=== PATIENT | male | born 1985 | race Caucasian/White ===

== ENCOUNTER 2019-12-27 20:47 | Emergency (ER) | payer SELFPAY ==
[~2019-12-27] VITALS: Ht 175.3 cm; Wt 100.0 kg
[2019-12-27 21:27] VITALS: BP 138/77
== END 2019-12-27 21:35 | disposition home or self-care (01) | DRG 950 ==
LOC: ED 20:47
DX: S01.00XD Unspecified open wound of scalp, subsequent encounter (principal); X58.XXXD Exposure to other specified factors, subsequent encounter

== ENCOUNTER 2020-01-12 05:18 | Emergency (ER) | payer SELFPAY ==
[~2020-01-12] VITALS: Ht 175.3 cm; Wt 100.0 kg
[2020-01-12] MEDS ORDERED: AMOXICILLIN500 MG PO (06:00)
[2020-01-12] MEDS ORDERED: VOLTAREN - GENE75 MG PO (06:00)
[2020-01-12 06:07] VITALS: BP 129/70
== END 2020-01-12 06:14 | disposition home or self-care (01) | DRG 159 ==
LOC: ED 05:18
DX: K04.7 Periapical abscess without sinus (principal); K02.9 Dental caries, unspecified